=== PATIENT | male | born 1945 | race Caucasian/White ===

== ENCOUNTER 2020-08-04 04:26 | Emergency (ER) | payer OTHER ==
[~2020-08-04] VITALS: Ht 180.3 cm; Wt 85.3 kg
[2020-08-04] MEDS ORDERED: AMIODARONE 150 MG/3 ML VIAL IV ONE (04:30)
[2020-08-04] MEDS ORDERED: SODIUM BICARBONATE SYR 50 MEQ/50 ML DISP.SYRIN IV ONE (04:30)
[2020-08-04] MEDS ORDERED: EPINEPHRINE (1:10,000) SYRINGE 1 MG/10 ML DISP.SYRIN IVP ONE (04:30)
[2020-08-04] MEDS ORDERED: CALCIUM CHLORIDE 1,000 MG/10 ML DISP.SYRIN IV ONE (04:30)
--- NOTE | 2020-08-04 04:30 | NUR ---
bibra 40 from home c/o respiratory distress x 4 hrs, "sick x 1 week per " field blood sugar 350 with ketones, pt nonverbal at this time. kussmal breathing noted. no nvd at this time. pt noted 02 sat 78 on room air, applied NRB in 15L improved to 88%, RT called.
--- NOTE | 2020-08-04 04:31 | NUR ---
URINE COLLECTED, SENT TO LAB.
--- NOTE | 2020-08-04 04:38 | NUR ---
LABS COLLECTED, SENT TO LAB.
--- NOTE | 2020-08-04 04:41 | NUR ---
CALLED FOR COVID SWAB
[2020-08-04] MEDS ORDERED: DEXAMETHASONE SOD PHOSPHATE 10 MG/ML VIAL ONE (04:54)
--- NOTE | 2020-08-04 04:54 | NUR ---
RADIOLOGY AT BEDSIDE
[2020-08-04 04:58] LABS: ABG BASE EXCESS -17.3 mmol/L; ABG OXYGEN SATURATION 81.2 % (92.0-98.5); ABG PCO2 21.7 mmHg (35.0-45.0); ABG PH 7.211 (7.350-7.450); ABG PO2 59.4 mmHg (75.0-100.0); AaDO2 631.9 mmHg; COHb 0.9 % (0.5-1.5); MetHb 0.5 % (0.0-1.5); O2Hb 80.1 % (94.0-97.0); SITE, ABG Right Radial; VENT MODE, BG NRB 15LPM 100%
[2020-08-04] MEDS ORDERED: DEXAMETHASONE SOD PHOSPHATE 10 MG/ML VIAL IV ONE (05:00)
[2020-08-04] MEDS ORDERED: IV NS 0.9% 500 ML IV ONE (05:00)
--- NOTE | 2020-08-04 05:19 | NUR ---
RICAID SWABBED, SENT TO LAB.
[2020-08-04 05:32] LABS: BASOPHILS # (AUTO) 0.1 /CMM (0.0-0.2); BASOPHILS % (AUTO) 0.4 % (0.0-2.0); EOSINOPHILS % (AUTO) 0.1 % (0.0-6.0); HEMATOCRIT 46 % (39-51); HEMOGLOBIN 14.7 g/dL (13.5-17.5); LYMPHOCYTES # (AUTO) 1.1 /CMM (0.8-4.8); LYMPHOCYTES % (AUTO) 4.4 % (20.0-44.0); MEAN CORPUSCULAR HGB CONC 32 g/dl (31.0-36.0); MEAN CORPUSCULAR VOLUME 97 fL (80-96); MONOCYTES # (AUTO) 1.4 /CMM (0.1-1.30); NEUTROPHILS # (AUTO) 21.3 /CMM (1.8-8.9); NEUTROPHILS % (AUTO) 89.1 % (43.0-81.0); PLATELET COUNT (AUTO) 285 /CMM (150-450); RED BLOOD CELL COUNT(AUTO) 4.77 MIL/uL (4.5-6.0); WHITE BLOOD COUNT (AUTO) 23.9 K/uL (4.3-11.0)
[2020-08-04 05:36] LABS: BILIRUBIN,URINE NEGATIVE (NEGATIVE); COLOR,URINE YELLOW (YELLOW); LEUKOCYTE ESTERASE ,URINE NEGATIVE (NEGATIVE); NITRITE, URINE NEGATIVE (NEGATIVE); PROTEIN,URINE 30 mg/dl (NEGATIVE); UGLUCOSE NEGATIVE (NEGATIVE); UROBILINOGEN,URINE 0.2 EU/dL (0.2)
[2020-08-04 05:44] LABS: BACTERIA,URINE Few /HPF (None Seen); SQUAMOUS EPITHELIAL CELL,UR Few /HPF (None Seen)
[2020-08-04 05:45] LABS: CARBON DIOXIDE 11 mmol/L (21-32); CHLORIDE 105 mmol/L (98-107); CREATININE 3.3 mg/dL (0.6-1.3); GLUCOSE 324 mg/dL (74-106); POTASSIUM 4.3 mmol/L (3.5-5.1); SODIUM SERUM 146 mmol/L (136-145); UREA NITROGEN, BLOOD 66 mg/dL (7-18)
--- NOTE | 2020-08-04 05:47 | NUR ---
PAGED LESTER LOPEZ DNP
[2020-08-04 05:51] LABS: ALANINE AMINOTRANSFERASE 91 U/L (12-78); ALBUMIN 2.2 g/dL (3.4-5.0); ALKALINE PHOSPHATASE 120 U/L (46-116); ASPARTATE AMINOTRANSFERASE 105 U/L (15-37); BILIRUBIN,DIRECT 0.5 mg/dL (0.0-0.2); BILIRUBIN,TOTAL 1.1 mg/dL (0.2-1.0); TOTAL PROTEIN, SERUM 7.5 g/dL (6.4-8.2)
--- NOTE | 2020-08-04 05:51 | NUR ---
TROP [phone]
--- NOTE | 2020-08-04 06:17 | NUR ---
LAB CALLED REGARDING NEGATIVE COVID RESULT.
--- NOTE | 2020-08-04 06:23 | NUR ---
Called Pharmacy regarding meds.
[2020-08-04] MEDS ORDERED: CEFTRIAXONE 1 G in IV D5W 50 ML IV ONE (06:30)
[2020-08-04] MEDS ORDERED: IV NS 0.9% 1,000 ML IV PRN (06:30)
[2020-08-04] MEDS ORDERED: AZITHROMYCIN 500 MG in IV D5W 250 ML IV ONE (06:30)
[2020-08-04] MEDS ORDERED: IV NS 0.9% 1,000 ML IV ONE (06:30)
[2020-08-04] MEDS ORDERED: ZOLPIDEM TARTRATE 5 MG TABLET PO PRN (06:30)
[2020-08-04] MEDS ORDERED: MAG HYDROX/AL HYDROX/SIMETH 30 ML UDC PO PRN (06:30)
[2020-08-04] MEDS ORDERED: HYDROCODONE/APAP 5/325MG TABLET PO PRN (06:30)
[2020-08-04] MEDS ORDERED: ONDANSETRON HCL/PF 4 MG/2 ML VIAL IVP PRN (06:30)
[2020-08-04] MEDS ORDERED: ACETAMINOPHEN 325 MG TABLET PO PRN (06:30)
[2020-08-04 06:40] VITALS: BP 97/45
--- NOTE | 2020-08-04 06:46 | NUR ---
SEE CODE SHEET
--- NOTE | 2020-08-04 07:20 | NUR ---
SPOKE WITH Jack GARCIA FROM [facility] OFFICE. STATES PT IS NOT A CORONOR'S CASE
--- NOTE | 2020-08-04 07:27 | NUR ---
SPOKE WITH SANDHYA SOLIMAN FROM [facility]. PER SANDHYA, CASE CLOSED
--- NOTE | 2020-08-04 08:16 | NUR ---
PT BODY TRANSPORTED [place] [facility] [place]
[2020-08-04] MEDS ORDERED: AZITHROMYCIN 500 MG in IV D5W 250 ML IV SCH (09:00)
[2020-08-04] MEDS ORDERED: DEXAMETHASONE SOD PHOSPHATE 10 MG/ML VIAL IV SCH (09:00)
[2020-08-04] MEDS ORDERED: HEPARIN SODIUM, PORCINE 5000 UNITS/1 ML VIAL SQ SCH (09:00)
[2020-08-05] MEDS ORDERED: CEFTRIAXONE 1 G in IV D5W 50 ML IV SCH (04:00)
[2020-08-05] MEDS ORDERED: AZITHROMYCIN 500 MG in IV D5W 250 ML IV SCH (06:00)
--- NOTE | 2020-08-05 11:40 | NUR ---
called dr akilah hall office # [phone] & spoke w/jose. notified about pt's in ED & that PMD has to sign the cert, amenable.
== END 2020-08-04 10:01 | disposition expired ==
LOC: ER 04:29
DX: A41.89 Other specified sepsis (principal); U07.1 COVID-19; J12.89 Other viral pneumonia; R65.21 Severe sepsis with septic shock; J96.01 Acute respiratory failure with hypoxia; J85.1 Abscess of lung with pneumonia; I21.4 Non-ST elevation (NSTEMI) myocardial infarction
CPT/HCPCS: 31500; 36415; 36600; 71045; 80048; 80076; 81001; 82803; 82962; 83605; 83880; 84145; 84484; 85025; 85730; 87040 ×2; 87086; 87426; 92950; 93005; 96374; 99291; A4217; C9803 ×2; J0171; J0282; J0456; J0696; J1100; J3490 ×2; J7030; J7060; U0003